=== PATIENT | female | born 1945 | race Caucasian/White ===

== ENCOUNTER 2018-11-05 10:33 | Emergency (ER) | payer MEDICARE ==
[~2018-11-05] VITALS: Ht 165.1 cm; Wt 84.8 kg
[~2018-11-05 10:33] MED LIST: ADVAIR 250-501 EACH IH; ADVAIR 500-501 EACH; ALBUTEROL2.5 MG/32 INH; ASTEPRO NASAL SPRAY; CELEBREX 200 M200 MG PO; CITRACAL + D C1 EACH; CLARINEX5 MG PO; CYCLOBENZAPRINE10 MG PO; DUONEB 2.5-0.5 M3 ML; LEVAQUIN 750 M750 MG; LEXAPRO 10 MG T10 MG PO; NORCO 5-325 TA1 EACH PO; NORVASC10 MG PO; OMEPRAZOLE40 MG PO; PAXIL10 MG; PHENERGAN 25 MG25 M1 PO; PREDNISONE 10 M10 M1 PO; PROAIR HFA8.5 GM; QVAR8.7 G1; RENA-VITE RX T1 EACH PO; ROBAXIN500 MG PO; SINGULAIR 10 MG10 M1 PO; SYMBICORT80 MCG/4.1; UNICOMPLEX M TA1 TA1 PO; VENTOLIN17 GM INH
[2018-11-05] MEDS ORDERED: TESSALON PERLE100 MG PO (11:15)
[2018-11-05] MEDS ORDERED: BREO ELLIPTA 21 EACH INH (11:15)
[2018-11-05] MEDS ORDERED: SPIRIVA INH (11:15)
[2018-11-05] MEDS ORDERED: VITAMIN D400 UNIT PO (11:16)
[2018-11-05] MEDS ORDERED: ZANTAC 150MG T150 MG PO (11:16)
[2018-11-05] MEDS ORDERED: GLUCOSAMINE HC500 MG PO (11:17)
[2018-11-05] MEDS ORDERED: FLEXERIL PO (11:17)
[2018-11-05] MEDS ORDERED: COLACE100 MG PO (11:17)
[2018-11-05] MEDS ORDERED: CLARINEX5 MG PO (11:18)
[2018-11-05] MEDS ORDERED: TUMS PO (11:18)
[2018-11-05] MEDS ORDERED: IPRATROPIUM BRO30 ML (11:19)
[2018-11-05 11:27] LABS: ABSOLUTE BASOPHILS 0.1 thou/uL (0.0-0.2); ABSOLUTE EOSINOPHILS 0.2 thou/uL (0.0-0.7); ABSOLUTE LYMPHOCYTES 0.9 thou/uL (0.8-5.3); ABSOLUTE MONOCYTES 0.7 thou/uL (0.0-1.2); ABSOLUTE NEUTROPHILS 6.3 thou/uL (1.6-8.1); BASOPHILS 0.8 %; EOSINOPHILS 2.9 %; HEMATOCRIT 39.3 % (37.0-47.0); HEMOGLOBIN 12.9 gm/dL (12.0-15.0); LYMPHOCYTES 11.4 %; MCH 29.2 pg (26.0-34.0); MCHC 32.8 g/dL (28.0-37.0); MCV 88.9 fL (80.0-100.0); MONOCYTES 8.6 %; MPV 7.2 fl. (7.2-11.1); NUCLEATED RBCS 0 /100WBC; PLATELET COUNT* 446 thou/uL (150-400); POLYS 76.3 %; RBC 4.43 mil/uL (4.20-5.00); RDW-CV 14.4 % (10.5-14.5); WBC 8.2 thou/uL (4.0-11.0)
[2018-11-05 11:46] LABS: INR 0.9; PROTIME 9.7 Seconds (9.20-11.50)
[2018-11-05 11:52] LABS: ANION GAP 8 mmol/L (7-16); BUN 25 mg/dL (7-18); CALCIUM 9.2 mg/dL (8.5-10.1); CHLORIDE 101 mmol/L (98-107); CO2 28 mmol/L (21-32); CREATININE 0.8 mg/dL (0.6-1.3); GLUCOSE 101 mg/dL (70-99); POTASSIUM 4.2 mmol/L (3.5-5.1); SODIUM 137 mmol/L (136-145)
[2018-11-05 11:57] LABS: ALBUMIN 3.6 g/dL (3.4-5.0); ALKALINE PHOSPHATASE 96 U/L (46-116); SGOT 13 U/L (15-37); SGPT 19 U/L (30-65); TOTAL BILIRUBIN 0.3 mg/dL (<0.1-1.0); TOTAL PROTEIN 7.1 g/dL (6.4-8.2); TROPONIN-I LEVEL <0.06 ng/mL (<0.06)
--- NOTE | 2018-11-05 14:37 | EKG ---
[place] [address] ELECTROCARDIOGRAM REPORT Name: ETIENNE TURPIN Room: [facility]#: [id number] Admission: 11/05/18 Attend Phys: Discharge: Date of : 49 Report #: [id number] THIS REPORT FOR: //name// [facility] ED Test Date: 2018-11-05 Test Time: 11:08:15 Pat Name: ETIENNE TURPIN Department: Room: Gender: F [employer]: : 1945 Requested By: Aby Gilbert Order Number: [id number] MD: True Davis Measurements Intervals [place] Rate: 75 P: 4 ID: [id number] QRS: 0 QRSD: 93 T: 33 QT: 407 QTc: 455 Interpretive Statements Sinus rhythm Low voltage, extremity leads Compared to ECG 10/19/2010 04:54:12 Low QRS voltage now present Sinus tachycardia no longer present Fusion complex(es) no longer present Myocardial infarct finding no longer present Electronically Signed On 11-05-2018 14:36:59 CDT by True Davis [email or web address] <ELECTRONICALLY SIGNED> By: True Davis MD, [facility] 11/05/18 1436 [id number] True Davis MD, [facility] /EPI
[2018-11-05 15:26] VITALS: BP 173/84
== END 2018-11-05 15:26 | disposition home or self-care (01) ==
LOC: M.ERS 10:33
PROVIDERS: Personal Emergency Response Attendant
DX: H53.2 Diplopia (principal); M19.90 Unspecified osteoarthritis, unspecified site; K21.9 Gastro-esophageal reflux disease without esophagitis; Z88.0 Allergy status to penicillin; Z88.8 Allergy status to other drugs, medicaments and biological substances